=== PATIENT | male | born 1990 | race Caucasian/White ===

== ENCOUNTER 2017-02-25 16:08 | Emergency (ER) | payer OTHER, SELFPAY | END 2017-02-25 19:42 | disposition home or self-care (01) | PROVIDERS: Emergency Provider Emergency Medicine; Family Provider Family Medicine; Visit Provider Emergency Medicine | DX: R31.9 Hematuria, unspecified (principal); N23 Unspecified renal colic; K21.9 Gastro-esophageal reflux disease without esophagitis; F17.210 Nicotine dependence, cigarettes, uncomplicated; Z88.0 Allergy status to penicillin | CPT/HCPCS: 74176; 80053; 81003; 85025; 99284 ==

== ENCOUNTER → 2018-05-04 07:54 | Outpatient (CLI) | payer OTHER, SELFPAY ==
--- NOTE | 2018-05-04 07:56 | US_ITS ---
US abdomen complete HISTORY: Heartburn, nausea, vomiting ITS.REASON: REFLUX WITH GASTRITIS ORDERING PHYSICIAN: Cony James PATIENT AGE: 28 years COMPARISON: None FINDINGS: PANCREAS:Unremarkable. No obvious mass or abnormal fluid collection. No ductal dilatation LIVER:No focal liver lesions demonstrated. Homogeneous echogenicity. No intrahepatic biliary ductal dilatation evident. There is appropriate direction of blood flow within the portal vein which is nondilated RIGHT KIDNEY:Unremarkable. Normal size and echogenicity. No hydronephrosis LEFT KIDNEY:Unremarkable. No hydronephrosis. Normal size and echogenicity. GALLBLADDER:No gallstones, gallbladder wall thickening, pericholecystic fluid, or biliary dilatation. Gallbladder does appear somewhat contracted . Common bile duct is normal at 4 mm. AORTA:No evidence of aneurysmal dilatation. SPLEEN:Unremarkable. Normal size and echogenicity ASCITES:None demonstrated. IMPRESSION: Essentially negative abdominal ultrasound
== END ==
PROVIDERS: PCP Nurse Practitioner Family; Visit Provider Nurse Practitioner Family
DX: K21.0 Gastro-esophageal reflux disease with esophagitis (principal)
CPT/HCPCS: 76700

== ENCOUNTER 2019-06-13 05:03 | Emergency (ER) | payer OTHER, SELFPAY ==
[2019-06-13 05:12] VITALS: BP 129/83; PULSE 76; RESP 14; TEMP 36.8; O2SAT 96; BMI 28.5
--- NOTE | 2019-06-13 05:13 | XR_ITS ---
PROCEDURE: XR ANKLE LT MIN 3V CLINICAL INDICATION: rolled his ankle wrestling in yard Pain following injury COMPARISON: XR FOOT LT MIN 3V from 06/13/2019 FINDINGS: Soft tissue swelling is present at the lateral malleolar region. There is a well-circumscribed calcific density at the tip of the lateral malleolus consistent with an old fracture versus ununited ossification center. No acute fracture or dislocation is evident. The mortise is preserved and the talar dome has an unremarkable appearance. There is a small metallic foreign body along the proximal and medial aspect of the proximal phalanx of the great toe measuring approximately 3 mm. This is within the soft tissues. IMPRESSION: 1. No acute fracture. 2. Soft tissue swelling at the lateral malleolar region. 3. Foreign body at the great toe area Dictated by: Geoff Dobbins MD 06/13/2019 08:54 Electronically signed by Geoff Dobbins MD in [facility] 06/13/2019 08:54
--- NOTE | 2019-06-13 05:13 | XR_ITS ---
PROCEDURE: XR TIBIA FIBULA LT 2V CLINICAL INDICATION: rolled ankle wrestling in yard Posttraumatic pain COMPARISON: XR ANKLE LT MIN 3V from 06/13/2019 FINDINGS: No acute fracture or dislocation evident. There is an old fracture versus ununited ossification center involving the lateral malleolus. Mild soft tissue swelling is present laterally. IMPRESSION: No acute fracture. Mild soft tissue Dictated by: Geoff Dobbins MD 06/13/2019 08:52 Electronically signed by Geoff Dobbins MD in [facility] 06/13/2019 08:52
--- NOTE | 2019-06-13 05:17 | XR_ITS ---
PROCEDURE: XR FOOT LT MIN 3V CLINICAL INDICATION: ankle injury Pain following injury COMPARISON: No exams were available for comparison FINDINGS: No fracture or dislocation. No lytic or blastic change. There is normal mineralization. The joint spaces are well-preserved. No significant degenerative/arthritic changes. No erosive changes evident. Other findings:There is a 3-4 mm metallic foreign body in the soft tissues along the proximal medial aspect of the proximal phalanx of the great toe IMPRESSION: No acute finding. Foreign body of the great toe Dictated by: Geoff Dobbins MD 06/13/2019 08:55 Electronically signed by Geoff Dobbins MD in [facility] 06/13/2019 08:55
--- NOTE | 2019-06-13 05:17 | HMH.EDGENADL ---
ED Disposition Clinical Impression: Left ankle sprain Qualifiers: Encounter type: initial encounter Involved ligament of ankle: unspecified ligament Qualified Code(s): S93.402A - Sprain of unspecified ligament of left ankle, initial encounter Sprain of left foot Qualifiers: Encounter type: initial encounter Qualified Code(s): S93.602A - Unspecified sprain of left foot, initial encounter Disposition: Home, Self-Care Condition on Discharge: Good Instructions: How to Use Crutches, DI for Ankle Sprain, How To Perform RICE (Rest, Ice, Compress, Elevate), DI for Foot Sprain, How to Use a Walking Boot Additional Instructions: Crutches, ice, elevation, orthopedic boot for 5-7 days. Follow-up with orthopedics if not improving over the next week. Tylenol 3 as needed for pain. Additional instructions for CONTROLLED SUBSTANCES: You have been prescribed a medication that is a controlled substance. Controlled substances include pain medications known as opiates and sedative nerve medications known as benzodiazepines. Tramadol, fioricet, and gabapentin are also controlled substances. Some common opiates include: Codeine (such as Tylenol #3) Hydrocodone (Vicodin, Lortab, Lorcet, Trimble) Oxycodone (Percocet, Percodan, Oxycodone, Oxy IR) Some common benzodiazepines include: Diazepam (Valium) Lorazepam (Ativan) Alprazolam (Xanax) Clonazepam (Klonopin) Oxazepam (Serax) All of these controlled substances are highly addictive and frequently abused. Misuse can and frequently does lead to addiction as well as overdose and . Medication should be stored in a locked cabinet or other secure storage unit. Do not store the medication in a motor vehicle. Short term supplies, 3 days or less, are prescribed because of the highly addictive nature of the medication. Any of the controlled substance medication NOT taken should be disposed of properly and NOT SAVED. The recommended method of disposing of unused medications is: Place the medicines in a sealable plastic bag. If the medicine is a solid, crush it or add water to dissolve it. Add something undesirable (cat litter, coffee grounds, etc.) Dispose of sealed bag in household trash Do not flush or pour unused medicines down a sink or drain. Controlled substances should not be shared, given away or sold. Because of the addictive nature and frequent abuse, these medications are sometimes stolen. These medications should be kept in a safe place where they cannot be stolen. Do not keep them in your car or purse. Lost or stolen prescriptions for controlled substances WILL NOT BE REFILLED in this emergency department, regardless of whether a police report was filed. Referrals: Zuri Martins [Primary Care Provider] - Leonid Lee MD [Staff Physician] - - Critical Care Critical Care Time: No Attestation: On 06/13/19, the high probability of a clinically significant, sudden or life threatening deterioration of the following system(s) required my full and direct attention, intervention and personal management. The time I documented below is in addition to time spent performing reported procedures but includes the following listed in this critical care notation. Medical Decision Making - Pelon Inquiry Pt receiving controlled substance: Yes Pelon was queried for this patient: Yes Reference #:: [id number] Risks and benefits of using a controlled substance: were discussed with pt by me Comment: 0 rxs Vital Signs: 06/13/19 05:12 Temperature 98.3 F Temperature Source Oral Pulse Rate [Right Brachial] 76 Respiratory Rate 14 Blood Pressure [Right Arm] 129/83 Blood Pressure Mean [Right Arm] 98 Blood Pressure Source [Right Arm] Automatic Cuff Blood Pressure Position [Right Arm] Sitting 02 Sat by Pulse Oximetry 96 Oxygen Delivery Method Room Air Orders (Tests/Meds): ORDERS Category Date Time Status XR ankle LT min 3V Stat Exams 06/13/19 05:13 Taken XR foot LT mi
[2019-06-13 05:48] VITALS: BP 134/79; PULSE 88; RESP 18; TEMP 36.7; O2SAT 98
== END 2019-06-13 05:51 | disposition home or self-care (01) ==
PROVIDERS: Emergency Provider Emergency Medicine; PCP Nurse Practitioner Family
DX: S93.402A Sprain of unspecified ligament of left ankle, initial encounter (principal); S93.602A Unspecified sprain of left foot, initial encounter; X50.1XXA Overexertion from prolonged static or awkward postures, initial encounter; Y92.017 Garden or yard in single-family (private) house as the place of occurrence of the external cause; Z88.0 Allergy status to penicillin; K21.9 Gastro-esophageal reflux disease without esophagitis; F17.210 Nicotine dependence, cigarettes, uncomplicated
CPT/HCPCS: 29515; 73590; 73610; 73630; 99283

== ENCOUNTER → 2020-01-09 16:37 | Outpatient (CLI) | payer OTHER, SELFPAY ==
--- NOTE | 2020-01-09 16:50 | XR_ITS ---
PROCEDURE: XR SHOULDER LT MIN 2V CLINICAL INDICATION: CERVICALGIA Left shoulder pain COMPARISON: No exams were available for comparison FINDINGS: No fracture or dislocation. No lytic or blastic change. There is normal mineralization. The joint spaces are well-preserved. No significant degenerative/arthritic changes. No erosive changes evident. Other findings:None. IMPRESSION: No acute findings. Dictated by: Geoff Dobbins MD 01/09/2020 19:20 Geoff Dobbins MD in [facility] 01/09/2020 19:20
== END ==
PROVIDERS: PCP Nurse Practitioner; Visit Provider Nurse Practitioner
DX: M25.512 Pain in left shoulder (principal)
CPT/HCPCS: 73030

== ENCOUNTER 2021-12-11 20:42 | Emergency (ER) | payer OTHER, SELFPAY ==
[2021-12-11 20:43] VITALS: BP 130/77; PULSE 80; RESP 17; TEMP 36.7; O2SAT 98; BMI 28.5
--- NOTE | 2021-12-11 21:08 | PC.NURSE ---
Dr. Brown and Geovanny Tabor RN at [facility]
--- NOTE | 2021-12-11 21:23 | [facility]H.EDEYEP ---
Discharge Plan Disposition Patient Disposition: Home, Self-Care Chief Complaint: Eye Problems Prescriptions Prescriptions: No Action sulfamethoxazole-trimethoprim 1 EACH tablet 1 each PO BID 10 Days Qty: 20 0RF omeprazole 40 MG capsule,delayed release(DR/EC) 40 mg PO DAILY ibuprofen 600 MG tablet 600 mg PO Q8HP PRN (Reason: Moderate Pain) Qty: 15 0RF Referrals Follow up/Referrals: Zuri Martins [Primary Care Provider] - See instructions Clinical Impressions Clinical Impression: Foreign body, eye Instructions Patient Instructions: DI for Foreign Body in the Eye Discharge ED Provider: Josr Brown Eye Problem HPI General Chief complaint: Eye Problems Stated complaint: AO12/11AT home FB in L eye Time Seen by Provider: 12/11/21 21:23 Mode of Arrival: Family Vehicle Source of Information: Patient, Spouse and Medical Record Limitations: No Limitations Description of Symptoms (Recalled from ER Triage Doc. by RN): Pt c/o L eye blurriness, irritation, and redness. States he has been wokring on a carport and noted some intemitent blurriness and itchiness . History of Present Illness HPI Narrative: lt eye with fb lt eye MD chief complaint: eye pain Onset (ago): hour(s) Duration: constant Location: left eye Eye Symptoms: pain Place: home Mechanism: occurred while hammering/grinding Severity: moderate Associated symptoms: none Related Data Patient tetanus UTD: Yes Home Medications Medication Instructions Recorded Confirmed omeprazole 40 mg capsule,delayed 40 mg PO DAILY GERD 07/20/18 07/20/18 release Previous Rx's Medication Instructions Recorded ibuprofen 600 mg tablet 600 mg PO Q8HP PRN Moderate Pain 07/20/18 #15 tabs sulfamethoxazole 800 1 each PO BID 10 days #20 tabs 09/01/18 mg-trimethoprim 160 mg tablet Allergies Allergy/AdvReac Type Severity Reaction Status Date / Time Penicillins [PENICILLINS] Allergy Intermediate Verified 06/13/19 05:18 PCN (PENICILLIN) Allergy Intermediate I-RASH Uncoded 02/17/17 15:08 PFSH PFSH Social History Smoking Status: Current every day smoker tobacco type: cigarettes packs per day: 1 alcohol intake: never current occupational status: employed Travel in the last 8 weeks: None household members: spouse housing: house caffeine: Yes ROS Obtained: Yes All systems reviewed & no additional complaints except as documented Eyes Eyes: Reports as per HPI Physical Exam General General appearance: alert Head Head exam: normocephalic Eye Eye exam: Present PERRL, EOMI and other (fb lt eye at 0300 ) ENT ENT exam: Present mucous membranes moist Neck Neck exam: Present trachea midline Respiratory Respiratory exam: Absent respiratory distress Cardiovascular Cardiovascular exam: Present regular rate Abdominal Exam Abdominal exam: Present soft Extremities Exam Extremities exam: Present full ROM Neurological Exam Neurological exam: Present alert, oriented X3 and CN II-XII intact Psychiatric Psychiatric exam: Present normal affect Skin Skin exam: Absent rash Medical Decision Making Medical Records Medical records reviewed: Yes I reviewed the patient's medical records. Pelon Inquiry Pt receiving controlled substance: No Vital Signs: 12/11/21 20:43 Temperature 98.1 F Temperature Source Oral Pulse Rate [Right] 80 Respiratory Rate 17 Blood Pressure [Right Arm] 130/77 Blood Pressure Mean [Right Arm] 94 Blood Pressure Source [Right Arm] Automatic Cuff 02 Sat by Pulse Oximetry 98 Oxygen Delivery Method Room Air Medical Decision Narrative: positive rust ring and will refer to [facility] in am Procedures Eye Exam/FB Removal Location: eye (L) Topical anesthetic used: tetracaine Fluorescein Stick(s) used: Yes Time Out performed: Yes Procedure performed under: direct visualization with magnification Foreign body: metal Evidence of corneal penetration: No Technique: cotton tip swab Post-procedure medi
[2021-12-11 22:14] VITALS: BP 128/70; PULSE 78; RESP 16; TEMP 36.7; O2SAT 99
== END 2021-12-11 22:14 | disposition home or self-care (01) ==
PROVIDERS: Emergency Provider Emergency Medicine; PCP Nurse Practitioner Family
DX: H57.12 Ocular pain, left eye (principal); H53.8 Other visual disturbances; F17.210 Nicotine dependence, cigarettes, uncomplicated; Z79.1 Long term (current) use of non-steroidal anti-inflammatories (NSAID); Z79.899 Other long term (current) drug therapy; Z88.0 Allergy status to penicillin
CPT/HCPCS: 99213; G0463

== ENCOUNTER → 2022-08-11 16:13 | Outpatient (CLI) | payer OTHER, SELFPAY ==
--- NOTE | 2022-08-11 16:17 | XR_ITS ---
PROCEDURE INFORMATION: Exam: XR Lumbosacral Spine Exam date and time: 08/11/2022 4:21 PM Age: 32 years old Clinical indication: Low back pain TECHNIQUE: Imaging protocol: Radiologic exam of the lumbosacral spine. Views: 4 or 5 views. COMPARISON: ABDPELW/O CT ABD PELVIS W/O CONTRAST 02/25/2017 6:04 PM FINDINGS: Bones/joints: Normal. No acute fracture. Normal alignment. Soft tissues: Unremarkable. IMPRESSION: No evidence of acute disease.
== END ==
PROVIDERS: PCP Nurse Practitioner Family; Visit Provider Nurse Practitioner Family
DX: M54.50 Low back pain, unspecified (principal)
CPT/HCPCS: 72110

== ENCOUNTER 2022-09-11 16:00 | Outpatient (RCR) | payer OTHER, SELFPAY | END 2022-09-26 10:20 | disposition home or self-care (01) | LOC: PT 16:00 | PROVIDERS: PCP Nurse Practitioner Family; Visit Provider Nurse Practitioner Family | DX: M54.50 Low back pain, unspecified (principal) | CPT/HCPCS: 97010; 97012; 97014; 97110; 97163; G0283 ==